=== PATIENT | male | born 1965 ===

== ENCOUNTER 2017-03-13 10:18 | Emergency (ER) | payer OTHER ==
[2017-03-13 10:29] VITALS: BP 144/75; PULSE 81; RESP 18; TEMP 98.4; O2SAT 99
[2017-03-13 10:30] VITALS: BMI 25.8
--- NOTE | 2017-03-13 11:02 | ED PDOC ---
HPI: General Adult Time Seen by Provider: 03/13/17 10:45 Past Medical History Vital Signs: Last Vital Signs Temp 98.4 F 03/13/17 10:29 Pulse 81 03/13/17 10:29 Resp 18 03/13/17 10:29 BP 144/75 03/13/17 10:29 Pulse Ox 99 03/13/17 10:29 - Medical History PMH: HIV, HTN, Pancreatitis Denies: Chronic Kidney Disease - Surgical History Surgical History: Cholecystectomy - Family History Family History: States: Unknown Family Hx - Home Medications Home Medications: Ambulatory Orders Medication Instructions Recorded Enalapril Maleate [Vasotec] 10 mg PO DAILY #0 tab 04/07/16 Elviteg/Gavi/Emtric/Tenofo Ala 1 tab PO DAILY 12/09/16 [Genvoya Tablet] hydroCHLOROthiazide [Hydrodiuril] 25 mg PO DAILY #15 tab 12/09/16 Amoxicillin/Clavulanate [Augmentin 1 tab PO BID #20 tab 03/13/17 875 MG-125 MG] - Allergies Allergies/Adverse Reactions: Allergies Allergy/AdvReac Type Severity Reaction Status Date / Time No Known Allergies Allergy Verified 01/03/16 12:16 - ECG O2 Sat by Pulse Oximetry: 99 Disposition - Clinical Impression Clinical Impression: Gum lesion - Patient ED Disposition Is Patient to be Admitted: No - Disposition Disposition: Routine/Home Disposition Time: 11:02 Condition: GOOD Prescriptions: Amoxicillin/Clavulanate [Augmentin 875 MG-125 MG] 1 tab PO BID #20 tab Instructions: Cavity Preventive (For the teeth or gums)
== END 2017-03-13 11:10 | disposition home or self-care (01) ==
LOC: H.ER 10:18
DX: K13.79 Other lesions of oral mucosa (principal)

== ENCOUNTER 2017-06-02 11:48 | Emergency (ER) | payer OTHER ==
[2017-06-02 11:48] VITALS: BMI 25.8
[2017-06-02 12:02] VITALS: BP 133/80; PULSE 87; RESP 16; TEMP 98; O2SAT 98
[2017-06-02] MEDS ORDERED: Sodium Chloride 0.9% 1,000 ML IV STA (12:47)
--- NOTE | 2017-06-02 13:07 | ED PDOC ---
HPI: Abdomen Time Seen by Provider: 06/02/17 12:06 Chief Complaint (Nursing): Abdominal Pain Chief Complaint (Provider): Abdominal pain History Per: Patient History/Exam Limitations: no limitations Onset/Duration Of Symptoms: Days (1) Outside of [place] travel?: No Location Of Pain/Discomfort: Epigastric Additional Complaint(s): Pt reports "burning" upper abdominal pain X 1 day, associated with nausea and diarrhea. Denies fever, vomiting, urinary symptoms. Had similar pain 1 month ago that resolved after taking Pepcid. Pt with HIV with "high" CD4 count. Past Medical History Reviewed: Nursing Documentation, Vital Signs Vital Signs: Last Vital Signs Temp 98 F 06/02/17 11:59 Pulse 87 06/02/17 11:59 Resp 16 06/02/17 11:59 BP 133/80 06/02/17 11:59 Pulse Ox 98 06/02/17 13:58 - Medical History PMH: HIV, HTN, Pancreatitis Denies: Chronic Kidney Disease - Surgical History Surgical History: Cholecystectomy - Family History Family History: States: Unknown Family Hx - Living Arrangements Living Arrangements: Alone - Social History Current smoker - smoking cessation education provided: No Alcohol: None - Home Medications Home Medications: Ambulatory Orders Medication Instructions Recorded Enalapril Maleate [Vasotec] 10 mg PO DAILY #0 tab 04/07/16 Elviteg/Gavi/Emtric/Tenofo Ala 1 tab PO DAILY 12/09/16 [Genvoya Tablet] hydroCHLOROthiazide [Hydrodiuril] 25 mg PO DAILY #15 tab 12/09/16 Amoxicillin/Clavulanate [Augmentin 1 tab PO BID #20 tab 03/13/17 875 MG-125 MG] Famotidine [Pepcid] 20 mg PO BID #20 tab 06/02/17 Ondansetron ODT [Zofran ODT] 4 mg PO Q8H PRN #20 odt 06/02/17 - Allergies Allergies/Adverse Reactions: Allergies Allergy/AdvReac Type Severity Reaction Status Date / Time No Known Allergies Allergy Verified 01/03/16 12:16 Review of Systems Constitutional: Negative for: Fever, Chills Cardiovascular: Negative for: Chest Pain, Palpitations Respiratory: Negative for: Cough, Shortness of Breath Gastrointestinal: Positive for: Nausea, Abdominal Pain. Negative for: Vomiting , Diarrhea Genitourinary Male: Negative for: Dysuria, Hematuria Musculoskeletal: Negative for: Back Pain Skin: Negative for: Rash, Lesions Neurological: Negative for: Headache Physical Exam - Reviewed Nursing Documentation Reviewed: Yes Vital Signs Reviewed: Yes - Physical Exam Appears: Positive for: Well, No Acute Distress Skin: Positive for: Normal Color, Warm, Dry Eye Exam: Positive for: Normal appearance, EOMI, PERRL Cardiovascular/Chest: Positive for: Regular Rate, Rhythm Respiratory: Positive for: Normal Breath Sounds Gastrointestinal/Abdominal: Positive for: Bowel Sounds, Soft, Tenderness ( Epigastric/RUQ). Negative for: Distended, Guarding, Rebound Back: Positive for: Normal Inspection. Negative for: L CVA Tenderness, R CVA Tenderness Extremity: Positive for: Normal ROM Neurologic/Psych: Positive for: Alert, Oriented - Laboratory Results Result Diagrams: 06/02/17 12:48 06/02/17 13:00 - ECG Interpretation Of ECG: NSR @ 81, no ST-T changes. O2 Sat by Pulse Oximetry: 98 - CT Scan/US CT abd/pelvis Other Rad Studies (CT/US): Radiology Report Reviewed (Previously noted cyst suspected pancreatitis changes which were predominately located about the pancreatic head on prior CT scan improved. Persistent dilatation of the common bile duct as well as mild central intrahepatic biliary ductal dilatation likely related to post cholecystectomy sequela. No evidence choledocholithiasis. Moderate amount of stool seen throughout the small bowel and proximal large bowel suggesting underlying the nonspecific diarrheal illness. Clinical correlation recommended. ) Medical Decision Making Medical Decision Makin yo with epigastric/RUQ pain, nausea and diarrhea. - labs - IVF - Zofran - Morphine Disposition - Clinical Impression Clinical Impression: Abdominal pain in male - Disposition Referrals: Wilbur Barrientos MD [Family Provider] - Disposition: Routine/Home Disposition Time: 16:29 Condition: STABLE Prescriptions: Famotidine [Pepcid] 20 mg PO BID #20 tab Ondansetron ODT [Zofran ODT] 4 mg PO Q8H PRN #20 odt PRN Reason: Nausea/Vomiting Instructions: Acute Abdominal Pain (ED) Forms: [employer] (Icelandic)
[2017-06-02 13:13] LABS: BASO % 0.2 % (0.0-2.0); EOS # 0.1 K/uL (0.0-0.7); EOS % 1.4 % (0.0-4.0); LYMPH # 0.8 K/uL (1.0-4.3); LYMPH % 8.1 % (20.0-40.0); MEAN CELL VOLUME 96.5 fl (80.0-94.0); MEAN CORPUSCULAR HEMOGLOBIN 34.1 pg (27.0-31.0); MEAN CORPUSCULAR HGB CONC 35.3 g/dL (33.0-37.0); MEAN PLATELET VOLUME 6.8 fl (7.2-11.7); MONO # 0.4 K/uL (0.0-0.8); MONO % 4.1 % (0.0-10.0); NEUT # 8.9 K/uL (1.8-7.0); NEUT % 86.2 % (50.0-75.0); PLATELET COUNT 259 K/uL (130-400); RBC 4.69 Mil/uL (4.40-5.90); WHITE BLOOD COUNT 10.3 K/uL (4.8-10.8)
[2017-06-02 13:37] LABS: ALB/GLOB RATIO 1.4 (1.0-2.1); ALBUMIN 4.4 g/dL (3.5-5.0); ALT/SGPT 49 U/L (21-72); AST/SGOT 43 U/L (17-59); BLOOD UREA NITROGEN 18 mg/dl (9-20); CALCIUM 9.3 mg/dL (8.4-10.2); GFR AFRICAN-AMERICAN > 60; GFR NON-AFRICAN AMERICAN 58; LIPASE 108 U/L (23-300)
[2017-06-02 14:03] LABS: BASOPHIL 1 % (0-2); EOSINOPHIL 1 % (0-7); LYMPHOCYTE 12 % (20-50); MONOCYTE 4 % (0-10); NEUTROPHIL 82 % (42-75); PLATELET ESTIMATE NORMAL (NORMAL); TOTAL CELLS COUNTED 100
--- NOTE | 2017-06-02 15:50 | CARD ---
APPROVED REPORT EKG Measurement Heart [id number] ID [id number] <Conclusion> Normal sinus rhythm Normal ECG
--- NOTE | 2017-06-02 16:25 | CT ---
PROCEDURE: CT Abdomen and Pelvis with Oral contrast. CT abdomen and pelvis dated 06/02/2017 HISTORY: Upper abdominal pain, nausea, diarrhea COMPARISON: Comparison made with CT scan abdomen and pelvis 04/04/2016 TECHNIQUE: Contiguous axial images of the abdomen and pelvis performed without oral or intravenous contrast. Additional 2 dimensional sagittal and coronal reformats provided. Radiation dose: Total exam DLP = 777.81 mGy-cm. This CT exam was performed using one or more of the following dose reduction techniques: Automated exposure control, adjustment of the mA and/or kV according to patient size, and/or use of iterative reconstruction technique. FINDINGS: LOWER THORAX: Lung bases clear without infiltrate effusion or pneumothorax. Mild bibasilar atelectasis and/or scarring. No effusion or basilar pneumothorax. There is a small hiatal hernia with slight wall thickening of the distal esophagus that is likely due to protrusion of gastric mucosa. Possibility of esophagitis not excluded. Heart size is within range of normal. No significant pericardial effusion. LIVER: Mild central intrahepatic biliary ductal dilatation again noted though less well seen on this study compared to prior CT scan lack of circulating intravenous contrast material. No obvious hepatic mass or collection. GALLBLADDER AND BILE DUCTS: Re- demonstrated are changes of cholecystectomy with dilatation of common bile duct. No definitive evidence of choledocholithiasis. PANCREAS: The pancreatic head appears less edematous with diminished infiltration changes in the peripancreatic fat surrounding the pancreatic head on prior exam which was felt to represent mild pancreatitis on that study however clinic correlation recommended. SPLEEN: Spleen not appears grossly unremarkable without mass collection or calcification seen on this limited noncontrast study. Small splenule adjacent to the anterior superior margin of the main body of the spleen unchanged. . ADRENALS: There are no adrenal lesions. KIDNEYS AND URETERS: Kidneys exhibit relatively symmetric size. No evidence of nephrolithiasis or hydronephrosis. BLADDER: Urinary bladder is incompletely distended which may account for slight thick-walled appearance. Muscular hypertrophy presumably contributes; rule out mild chronic bladder outlet obstruction. Possibility of a cystitis not excluded. REPRODUCTIVE: Prostate gland is enlarged measuring approximately 5.4 cm in transverse dimension. Prostatic calcifications again noted. APPENDIX: What is felt to represent the appendix best seen on axial image number [id number]. No periappendiceal inflammatory changes. BOWEL: Evaluation of the bowel is limited due to the lack of oral contrast material. The stomach contains food debris liquid and air though is incompletely distended which presumably accounts slight thick-walled appearance. There are multiple nondistended fluid-filled loops of small bowel however no evidence of abnormal wall thickening. . There is a moderate amount of fluid within the cecum and proximal ascending colon. Findings suggest underlying nonspecific diarrheal illness. PERITONEUM: No gross free intraperitoneal air or fluid. . There appears to be at mild diastases of the upper abdominus rectus musculature LYMPH NODES: Few small nonspecific retroperitoneal lymph nodes are present. VASCULATURE: No evidence of abdominal aortic or iliac artery aneurysm. BONES: Mild multilevel degenerative spondylosis of the lower thoracic and lumbar spine. There is straightening of the normal lumbar lordosis. Vertebral bodies otherwise exhibit normal alignment. Facets normally aligned. OTHER FINDINGS: None. IMPRESSION: Previously noted cyst suspected pancreatitis changes which were predominately located about the pancreatic head on prior CT scan improved. . Persistent dilatation of the common bile duct as well as mild central intrahepatic biliary ductal dilatation likely related to post cholecystectomy sequela. No evidence choledocholithiasis. Moderate amount of stool seen throughout the small bowel and proximal large bowel suggesting underlying the nonspecific diarrheal illness. Clinical correlation recommended. Findings discussed with Dr. Hua at approximately 4:20 p.m. with written down and read back verification
== END 2017-06-02 17:06 | disposition home or self-care (01) ==
LOC: H.ER 11:48
DX: R10.9 Unspecified abdominal pain (principal); I10 Essential (primary) hypertension

== ENCOUNTER 2017-11-03 09:58 | Day surgery (SDC) | payer SELFPAY ==
[2017-11-03] MEDS ORDERED: Lactated Ringer's 1,000 ML IV ONE (13:30)
[2017-11-03] MEDS ORDERED: Propofol 10 mg/ml Inj (20 ML) ONE (13:35)
[2017-11-03] MEDS ORDERED: Lidocaine 2% MPF (5 ml) Inj ONE (13:35)
--- NOTE | 2017-11-03 13:35 | CP.SDSHP ---
Same Day Surgery H & P - History Proposed Procedure: colonoscopy Pre-Op Diagnosis: colon cancer screening - Previous Medical/Surgical History Cardiac: Hypertension - Allergies Allergies: Allergies No Known Allergies Allergy (Verified 11/03/17 13:31) - Physical Exam General Appearance: alert oriented x3 Mental Status: Alert & Oriented x3 Neuro: WNL Heart: WNL Lungs: WNL GI: WNL - Impression Impression: colon cancer screening Pt. Evaluated Today:Candidate for Anesthesia & Procedure: Yes - Date & Time Date: 11/03/16 Time: 13:30 Short Stay Discharge - Short Stay Discharge Admitting Diagnosis/Reason for Visit: SCREENING Disposition: HOME/ ROUTINE Referrals: Wilbur Barrientos MD [Primary Care Provider] -
[2017-11-03 14:17] VITALS: BP 109/59; PULSE 84; RESP 17; TEMP 7.1; O2SAT 100
== END 2017-11-03 14:31 | disposition home or self-care (01) ==
LOC: H.ENDO 09:58
PROVIDERS: ATTEND Internal Medicine Gastroenterology
DX: Z12.11 Encounter for screening for malignant neoplasm of colon (principal); Z21 Asymptomatic human immunodeficiency virus [HIV] infection status; I10 Essential (primary) hypertension; K64.8 Other hemorrhoids
CPT/HCPCS: 45378; J2704; J7120

== ENCOUNTER 2018-02-07 08:15 | Emergency (ER) | payer MEDICAID, SELFPAY ==
[2018-02-07 08:16] VITALS: BMI 25.8
[2018-02-07 08:20] VITALS: BP 117/67; O2SAT 99
[2018-02-07] MEDS ORDERED: Sodium Chloride 0.9% 1,000 ML IV STA (08:33)
--- NOTE | 2018-02-07 08:43 | ED PDOC ---
HPI: General Adult Time Seen by Provider: 02/07/18 08:29 Chief Complaint (Nursing): Flu-like Symptoms Chief Complaint (Provider): fever, body aches, and headache History Per: Patient History/Exam Limitations: no limitations Onset/Duration Of Symptoms: Days (x2) Current Symptoms Are (Timing): Still Present Additional Complaint(s): 52 year old male with a past medical history of HIV presents to the ED complaining of fever, body aches, and headache onset two days ago. Reports he was exposed to sick contacts because his friend was sick a few days ago. Patient states his CD 4 count is over 400. Also states his last dose of Tylenol was last night. Denies cough, vomiting, diarrhea, or vision changes. PMD: Ernie Andrade Past Medical History Reviewed: Historical Data, Nursing Documentation, Vital Signs Vital Signs: Last Vital Signs Temp 99.3 F 02/07/18 10:35 Pulse 83 02/07/18 10:35 Resp 16 02/07/18 10:35 BP 117/67 02/07/18 08:19 Pulse Ox 99 02/07/18 10:35 - Medical History PMH: HIV, HTN, Pancreatitis Denies: Chronic Kidney Disease - Surgical History Surgical History: Cholecystectomy - Family History Family History: States: Unknown Family Hx - Home Medications Home Medications: Ambulatory Orders Medication Instructions Recorded Enalapril Maleate [Vasotec] 10 mg PO DAILY #0 tab 04/07/16 Elviteg/Cob/Emtri/Tenof Alafen 1 tab PO DAILY 12/09/16 [Genvoya Tablet] Ibuprofen [Motrin] 600 mg PO Q6H PRN #20 tab 02/07/18 Oseltamivir Phosphate [Tamiflu] 75 mg PO BID #9 capsule 02/07/18 - Allergies Allergies/Adverse Reactions: Allergies Allergy/AdvReac Type Severity Reaction Status Date / Time No Known Allergies Allergy Verified 11/03/17 13:31 Review of Systems ROS Statement: Except As Marked, All Systems Reviewed And Found Negative Constitutional: Positive for: Fever, Other (bpdy aches) Eyes: Negative for: Vision Change Respiratory: Negative for: Cough Gastrointestinal: Negative for: Vomiting, Diarrhea Neurological: Positive for: Headache Physical Exam - Reviewed Nursing Documentation Reviewed: Yes Vital Signs Reviewed: Yes - Physical Exam Appears: Positive for: Well, Non-toxic, No Acute Distress Head Exam: Positive for: ATRAUMATIC, NORMAL INSPECTION, NORMOCEPHALIC Skin: Positive for: Normal Color, Warm, Dry Eye Exam: Positive for: EOMI, Normal appearance, PERRL ENT: Positive for: Normal ENT Inspection, Pharynx Is (clear). Negative for: Tonsillar Exudate Neck: Positive for: Normal, Painless ROM, Supple. Negative for: Decreased ROM Cardiovascular/Chest: Positive for: Regular Rate, Rhythm. Negative for: Murmur Respiratory: Positive for: Normal Breath Sounds. Negative for: Decreased Breath Sounds, Accessory Muscle Use, Wheezing, Respiratory Distress Gastrointestinal/Abdominal: Positive for: Normal Exam, Bowel Sounds, Soft. Negative for: Tenderness Back: Positive for: Normal Inspection. Negative for: L CVA Tenderness, R CVA Tenderness Extremity: Positive for: Normal ROM. Negative for: Tenderness, Pedal Edema, Deformity Neurologic/Psych: Positive for: Alert, Oriented (x3). Negative for: Motor/ Sensory Deficits - Laboratory Results Result Diagrams: 02/07/18 08:46 02/07/18 08:46 - ECG O2 Sat by Pulse Oximetry: 99 (RA) Pulse Ox Interpretation: Normal Medical Decision Making Medical Decision Making: Time: 831 Initial Impression: Fever, Viral Syndrome, Flu Initial Plan: --CMP --ED Urine dipstick --CBC w/ differential --PTT --Prothrombin Time --Motrin 600mg --Normal Saline 1000 mls/hr --Tylenol 650mg --Influenza A B --Urinalysis --Reevaluation Scribe Attestation: Documented by Michelet Lauren, acting as a scribe for Alma Hua MD Provider Scribe Attestation: All medical record entries made by the Scribe were at my direction and personally dictated by me. I have reviewed the chart and agree that the record accurately reflects my personal performance of the history, physical exam, medical decision making, and the department course for this patient. I have also personally directed, reviewed, and agree with the discharge instructions and disposition. Disposition - Clinical Impression Clinical Impression: Influenza-like symptoms - Disposition Referrals: Wilbur Andrade MD [Staff Provider] - Disposition: Routine/Home Disposition Time: 10:44 Condition: STABLE Prescriptions: Ibuprofen [Motrin] 600 mg PO Q6H PRN #20 tab PRN Reason: Pain, Moderate (4-7) Oseltamivir Phosphate [Tamiflu] 75 mg PO BID #9 capsule Instructions: Flu Forms: [facility] (Tristanian) Print Language: PALAUAN
[2018-02-07 08:53] LABS: BASO % 0.5 % (0.0-2.0); EOS % 0.1 % (0.0-4.0); HEMOGLOBIN 14.2 g/dL (12.0-18.0); LYMPH # 0.6 K/uL (1.0-4.3); LYMPH % 7.7 % (20.0-40.0); MEAN CELL VOLUME 98.5 fl (80.0-94.0); MEAN CORPUSCULAR HEMOGLOBIN 34.3 pg (27.0-31.0); MEAN CORPUSCULAR HGB CONC 34.8 g/dL (33.0-37.0); MEAN PLATELET VOLUME 6.8 fl (7.2-11.7); MONO # 0.4 K/uL (0.0-0.8); MONO % 5.5 % (0.0-10.0); NEUT # 6.7 K/uL (1.8-7.0); NEUT % 86.2 % (50.0-75.0); PLATELET COUNT 220 K/uL (130-400); RBC 4.15 Mil/uL (4.40-5.90); RED CELL DISTRIBUTION WIDTH 13.1 % (11.5-14.5); WHITE BLOOD COUNT 7.8 K/uL (4.8-10.8)
[2018-02-07 09:03] LABS: ALB/GLOB RATIO 1.2 (1.0-2.1); ALBUMIN 4.1 g/dL (3.5-5.0); ALT/SGPT 67 U/L (21-72); AST/SGOT 58 U/L (17-59); BLOOD UREA NITROGEN 15 mg/dl (9-20); CALCIUM 9.1 mg/dL (8.4-10.2); GFR AFRICAN-AMERICAN > 60; GFR NON-AFRICAN AMERICAN 53
[2018-02-07 09:42] LABS: SQUAMOUS EPITHIAL < 1 /hpf (0-5); URINE AMORPHOUS SEDIMENT RARE /ul (<OCC); URINE BILIRUBIN NEGATIVE (NEGATIVE); URINE BLOOD NEGATIVE (NEGATIVE); URINE CLARITY SLIGHTY-CLOUDY (Clear); URINE COLOR YELLOW (YELLOW); URINE GLUCOSE (UA) NEG (Normal); URINE LEUKOCYTE ESTERASE TRACE Leu/uL (Negative); URINE PROTEIN NEGATIVE (NEGATIVE); URINE UROBILINOGEN 0.2-1.0 mg/dL (0.2-1.0)
[2018-02-07 09:56] LABS: ANISOCYTOSIS SLIGHT; LYMPHOCYTE 6 % (20-50); MONOCYTE 5 % (0-10); NEUTROPHIL 89 % (42-75); OVALOCYTES SLIGHT; PLATELET ESTIMATE NORMAL (NORMAL); TOTAL CELLS COUNTED 100
[2018-02-07 09:57] LABS: LARGE PLATELETS PRESENT; TEARDROP CELLS SLIGHT
[2018-02-07 10:35] VITALS: PULSE 83; RESP 16; TEMP 99.3
== END 2018-02-07 10:52 | disposition home or self-care (01) ==
LOC: H.ER 08:15
DX: J11.1 Influenza due to unidentified influenza virus with other respiratory manifestations (principal); I10 Essential (primary) hypertension
CPT/HCPCS: 80053; 81003; 85025; 87804; 96360; 99283; J7040

== ENCOUNTER 2018-05-16 07:23 | Emergency (ER) | payer SELFPAY ==
[2018-05-16 07:23] VITALS: BMI 25.8
[2018-05-16 07:36] VITALS: BP 119/69; PULSE 66; RESP 16; TEMP 98.3; O2SAT 98
[2018-05-16] MEDS ORDERED: Sodium Chloride 0.9% 1,000 ML IV STA (07:53)
--- NOTE | 2018-05-16 07:55 | ED PDOC ---
HPI: Abdomen Time Seen by Provider: 05/16/18 07:27 Chief Complaint (Nursing): GI Problem Chief Complaint (Provider): GI Problem History Per: Patient History/Exam Limitations: no limitations Onset/Duration Of Symptoms: Days (x4) Outside of [place] travel?: No Current Symptoms Are (Timing): Still Present Location Of Pain/Discomfort: Epigastric Quality Of Discomfort: Cramping Associated Symptoms: Diarrhea Additional Complaint(s): 52 y/o male with a PMHx of HTN and HIV presents to the ED complaining of cramping abdominal pain associated with diarrhea, onset 4 days ago. Patient reports of a similar episode last year but is unsure which medications he took to relieve symptoms. Patient states pain comes and goes every day for the past 4 days starting at around 4 am. Denies nausea, vomiting, chest pain, shortness of breath, leg pain, dizziness/lightheadedness, cough, congestion, travel, sick contacts, dysuria, hematuria and hematochezia. PMD: Wilbur Barrientos Past Medical History Reviewed: Historical Data, Nursing Documentation, Vital Signs Vital Signs: Last Vital Signs Temp 98.3 F 05/16/18 07:35 Pulse 66 05/16/18 07:35 Resp 16 05/16/18 07:35 BP 119/69 05/16/18 07:35 Pulse Ox 98 05/16/18 08:04 - Medical History PMH: HIV, HTN, Pancreatitis Denies: Chronic Kidney Disease - Surgical History Surgical History: Cholecystectomy - Family History Family History: States: Unknown Family Hx - Home Medications Home Medications: Ambulatory Orders Medication Instructions Recorded Enalapril Maleate [Vasotec] 10 mg PO DAILY #0 tab 04/07/16 Elviteg/Cob/Emtri/Tenof Alafen 1 tab PO DAILY 12/09/16 [Genvoya Tablet] Ibuprofen [Motrin] 600 mg PO Q6H PRN #20 tab 02/07/18 Oseltamivir Phosphate [Tamiflu] 75 mg PO BID #9 capsule 02/07/18 Dicyclomine [Dicyclomine HCl] 10 mg PO DAILY PRN 5 Days cap 05/16/18 - Allergies Allergies/Adverse Reactions: Allergies Allergy/AdvReac Type Severity Reaction Status Date / Time No Known Allergies Allergy Verified 05/16/18 07:41 Review of Systems ROS Statement: Except As Marked, All Systems Reviewed And Found Negative ENT: Negative for: Nose Congestion Cardiovascular: Negative for: Chest Pain Respiratory: Negative for: Cough, Shortness of Breath Gastrointestinal: Positive for: Abdominal Pain, Diarrhea. Negative for: Nausea , Vomiting, Hematochezia Genitourinary Male: Negative for: Dysuria, Hematuria Musculoskeletal: Negative for: Leg Pain Neurological: Negative for: Dizziness Physical Exam - Reviewed Nursing Documentation Reviewed: Yes Vital Signs Reviewed: Yes - Physical Exam Appears: Positive for: No Acute Distress Head Exam: Positive for: ATRAUMATIC, NORMOCEPHALIC Skin: Positive for: Normal Color, Warm, Dry Eye Exam: Positive for: Normal appearance, EOMI, PERRL Neck: Positive for: Normal, Painless ROM Cardiovascular/Chest: Positive for: Regular Rate, Rhythm. Negative for: Murmur Respiratory: Positive for: Normal Breath Sounds. Negative for: Respiratory Distress Gastrointestinal/Abdominal: Positive for: Normal Exam, Tenderness (Mild epigastric tenderness) Back: Positive for: Normal Inspection Extremity: Positive for: Normal ROM. Negative for: Pedal Edema, Deformity Neurologic/Psych: Positive for: Alert, Oriented. Negative for: Motor/Sensory Deficits - Laboratory Results Result Diagrams: 05/16/18 08:00 05/16/18 08:00 Interpretation Of Abn Labs: no acute - ECG O2 Sat by Pulse Oximetry: 98 (RA) Pulse Ox Interpretation: Normal - Progress ED Course And Treament: 933: Stable. AAOx3. Pain free. Tolerated PO. FU with pcp. Medical Decision Making Medical Decision Making: Time: 752 Plan: -- CMP -- Lipase -- CBC with differentials -- Bentyl -- Sodium Chloride IV 1000 mls/hr Scribe Attestation: Documented by Zuhair Perkins acting as a scribe for Dr. Daniel Beltrán MD. Provider Scribe Attestation: All medical record entries made by the Scribe were at my direction and personally dictated by me. I have reviewed the chart and agree that the record accurately reflects my personal performance of the history, physical exam, medical decision making, and the department course for this patient. I have also personally directed, reviewed, and agree with the discharge instructions and disposition. Disposition - Clinical Impression Clinical Impression: Diarrhea, Abdominal pain - Patient ED Disposition Is Patient to be Admitted: No Counseled Patient/Family Regarding: Studies Performed, Diagnosis, Need For Followup, Rx Given - Disposition Referrals: [facility] [Outside] - 05/17/18 Disposition: Routine/Home Disposition Time: 09:34 Condition: STABLE Additional Instructions: Return if not better in 3 days. Prescriptions: Dicyclomine [Dicyclomine HCl] 10 mg PO DAILY PRN 5 Days cap PRN Reason: Diarrhea Instructions: Diarrhea in Adolescents and Adults, Stomach Ache and Stomach Upset Forms: [facility] (Khmer), [facility] ED School/Work Excuse
[2018-05-16 08:27] LABS: BASO % 0.7 % (0.0-2.0); EOS # 0.1 K/uL (0.0-0.7); EOS % 1.2 % (0.0-4.0); HEMOGLOBIN 14.6 g/dL (12.0-18.0); LYMPH # 1.4 K/uL (1.0-4.3); LYMPH % 29.5 % (20.0-40.0); MEAN CELL VOLUME 96.8 fl (80.0-94.0); MEAN CORPUSCULAR HEMOGLOBIN 33.5 pg (27.0-31.0); MEAN CORPUSCULAR HGB CONC 34.6 g/dL (33.0-37.0); MEAN PLATELET VOLUME 6.9 fl (7.2-11.7); MONO # 0.7 K/uL (0.0-0.8); MONO % 13.8 % (0.0-10.0); NEUT # 2.6 K/uL (1.8-7.0); NEUT % 54.8 % (50.0-75.0); RBC 4.34 Mil/uL (4.40-5.90); RED CELL DISTRIBUTION WIDTH 13.2 % (11.5-14.5); WHITE BLOOD COUNT 4.7 K/uL (4.8-10.8)
[2018-05-16 08:43] LABS: ALB/GLOB RATIO 1.2 (1.0-2.1); ALBUMIN 4.3 g/dL (3.5-5.0); ALT/SGPT 27 U/L (21-72); AST/SGOT 32 U/L (17-59); BLOOD UREA NITROGEN 16 mg/dl (9-20); CALCIUM 9.4 mg/dL (8.4-10.2); GFR NON-AFRICAN AMERICAN > 60; LIPASE 82 U/L (23-300)
== END 2018-05-16 10:02 | disposition home or self-care (01) ==
LOC: H.ER 07:23
DX: R10.9 Unspecified abdominal pain (principal); R19.7 Diarrhea, unspecified; I10 Essential (primary) hypertension; K85.90 Acute pancreatitis without necrosis or infection, unspecified
CPT/HCPCS: 80053; 83690; 85025; 99284; J7030

== ENCOUNTER 2018-10-17 10:01 | Emergency (ER) | payer SELFPAY ==
[2018-10-17 10:01] VITALS: BMI 25.8
[2018-10-17 10:17] VITALS: O2SAT 99
--- NOTE | 2018-10-17 11:17 | ED PDOC ---
HPI: General Adult Time Seen by Provider: 10/17/18 10:21 Chief Complaint (Nursing): ENT Problem History Per: Patient Additional Complaint(s): Pt. states 1 week ago he removed a fishbone from the L side of his throat by himself at home. States since then he's had L sided sore throat radiating up to his L ear. Denies fever, throat swelling, rash, hearing changes. Past Medical History Vital Signs: Last Vital Signs Temp 98.3 F 10/17/18 10:16 Pulse 68 10/17/18 10:16 Resp 16 10/17/18 10:16 BP 146/72 10/17/18 10:16 Pulse Ox 99 10/17/18 10:16 - Medical History PMH: HIV (compliant with meds), HTN, Pancreatitis Denies: Chronic Kidney Disease - Surgical History Surgical History: Cholecystectomy - Family History Family History: States: No Known Family Hx - Home Medications Home Medications: Ambulatory Orders Medication Instructions Recorded RX: Enalapril Maleate [Vasotec] 10 mg PO DAILY #0 tab 04/07/16 Elviteg/Cob/Emtri/Tenof Alafen 1 tab PO DAILY 12/09/16 [Genvoya Tablet] Ibuprofen [Motrin] 600 mg PO Q6H PRN #20 tab 02/07/18 Oseltamivir Phosphate [Tamiflu] 75 mg PO BID #9 capsule 02/07/18 Dicyclomine [Dicyclomine HCl] 10 mg PO DAILY PRN 5 Days cap 05/16/18 RX: Naproxen [Naprosyn] 500 mg PO BID PRN #10 tab 10/17/18 - Allergies Allergies/Adverse Reactions: Allergies Allergy/AdvReac Type Severity Reaction Status Date / Time No Known Allergies Allergy Verified 10/17/18 10:34 Review of Systems ROS Statement: Except As Marked, All Systems Reviewed And Found Negative ENT: Positive for: Throat Pain Physical Exam - Physical Exam Appears: Positive for: Well, Non-toxic, No Acute Distress Skin: Positive for: Normal Color, Warm. Negative for: Rash Eye Exam: Positive for: Normal appearance ENT: Positive for: Normal ENT Inspection, TM Is/Are (non-erythematous, non- bulging b/l), Other (able to swallow saliva; no FB noted). Negative for: Pharyngeal Erythema, Tonsillar Exudate, Tonsillar Swelling Neck: Positive for: Normal, Painless ROM Respiratory: Positive for: Normal Breath Sounds. Negative for: Stridor Neurologic/Psych: Positive for: Alert, Oriented (x3) - Laboratory Results Result Diagrams: 10/17/18 11:37 10/17/18 11:37 - ECG O2 Sat by Pulse Oximetry: 99 - Progress ED Course And Treament: Labs, soft tissue neck w/ IV contrast ordered. Pt. kept NPO. CT neck soft tissue: There are multiple tiny calcified tonsilliths seen throughout both palatine tonsils. No evidence of peritonsillar abscess formation.. Nonspecific small lucent changes seen within the C4, C5 and probably the C2 vertebral body segments of uncertain etiology. Clinical correlation to exclude an infiltrative marrow disease process is recommended. Results d/w patient along with necessary f/u for c-spine findings. Verbalized understanding of necessary f/u. Disposition - Clinical Impression Clinical Impression: Odynophagia - Patient ED Disposition Is Patient to be Admitted: No - Disposition Referrals: Say Simeon MD [Staff Provider] - Disposition: Routine/Home Disposition Time: 15:14 Condition: STABLE Additional Instructions: FOLLOW UP WITH DR. SIMEON FOR FURTHER EVALUATION RETURN TO ED IMMEDIATELY IF SYMPTOMS WORSEN NEEL TEJADA, thank you for letting us take care of you today. Your provider was Oz Contreras MD and you were treated for THROAT PAIN. The emergency medical care you received today was directed at your acute symptoms. If you were prescribed any medication, please fill it and take as directed. It may take several days for your symptoms to resolve. Return to the Emergency Department if your symptoms worsen, do not improve, or if you have any other problems. Please contact your doctor or call one of the physicians/clinics you have been referred to that are listed on the Patient Visit Information form that is included in your discharge packet. Bring any paperwork you were given at discharge with you along with any medications you are taking to your follow up visit. Our treatment cannot replace ongoing medical care by a primary care p alexia outside of the emergency department. Thank you for allowing the [facility] team to be part of your care today. If you had an X-Ray or CT scan: A Radiologist will review the ED reading if any change in treatment is needed we will contact you. If you had a blood, urine, or wound culture: It will take several days for the results, if any change in treatment is needed we will contact you. If you had an STI test: It will take 48 hours for the results. Please call after 1 week if you have not heard back. Prescriptions: RX: Naproxen [Naprosyn] 500 mg PO BID PRN #10 tab PRN Reason: Pain Instructions: Sore Throat, Adult (DC) Forms: [employer] ([place])
[2018-10-17 11:53] LABS: ALB/GLOB RATIO 1.3 (1.0-2.1); ALBUMIN 4.5 g/dL (3.5-5.0); ALT/SGPT 37 U/L (21-72); AST/SGOT 30 U/L (17-59); BLOOD UREA NITROGEN 21 mg/dl (9-20); CALCIUM 9.5 mg/dL (8.4-10.2); GFR NON-AFRICAN AMERICAN 58
[2018-10-17 11:54] LABS: BASO % 0.5 % (0.0-2.0); EOS # 0.2 K/uL (0.0-0.7); HEMOGLOBIN 14.7 g/dL (12.0-18.0); LYMPH # 1.9 K/uL (1.0-4.3); MEAN CELL VOLUME 99.1 fl (80.0-94.0); MEAN CORPUSCULAR HEMOGLOBIN 33.4 pg (27.0-31.0); MEAN CORPUSCULAR HGB CONC 33.7 g/dL (33.0-37.0); MEAN PLATELET VOLUME 7.1 fl (7.2-11.7); MONO # 0.7 K/uL (0.0-0.8); MONO % 11.2 % (0.0-10.0); NEUT # 3.3 K/uL (1.8-7.0); NEUT % 54.3 % (50.0-75.0); NRBC % 0.1 % (0.0-0.0); RBC 4.39 Mil/uL (4.40-5.90); RED CELL DISTRIBUTION WIDTH 13.3 % (11.5-14.5)
[2018-10-17] MEDS ORDERED: Iohexol 300 100 ML IJ ONE (12:56)
[2018-10-17] MEDS ORDERED: Sodium Chloride 0.9% 50 ML IV ONE (12:56)
--- NOTE | 2018-10-17 14:58 | CT ---
Date of service: 10/17/2018 PROCEDURE: CT NECK WITH CONTRAST HISTORY: Left-sided sore throat COMPARISON: None available. TECHNIQUE: CT of the neck with intravenous contrast. Coronal and sagittal reformats generated. Intravenous contrast dose: Radiation dose: Total exam DLP = 326.26 mGy-cm. This CT exam was performed using one or more of the following dose reduction techniques: Automated exposure control, adjustment of the mA and/or kV according to patient size, and/or use of iterative reconstruction technique. FINDINGS: NASOPHARYNX: Unremarkable. SUPRAHYOID NECK: There are multiple tiny calcified tonsilliths seen throughout both palatine tonsils. No evidence of peritonsillar abscess formation. The parapharyngeal space and retropharyngeal space unremarkable.. The vallecular is symmetric. Free margin of the epiglottis unremarkable. The aryepiglottic folds and pyriform sinuses are not well delineated on this study; pyriform sinuses are not aerated. INFRAHYOID NECK: Unremarkable larynx, hypopharynx, and supraglottic space. Vocal cords intact and appear symmetric. MASS: No large cervical masses or collections identified on this CT scan. GLANDS: Parotid and submandibular glands unremarkable. Normal size thyroid gland, without nodule. LYMPH NODES: No significant cervical adenopathy. CERVICAL SPINE: Mild degenerative spondylosis C5-C6 level.. Nonspecific lucent changes are seen within the C4, C5 and probably the C2 vertebral body segments nonspecific. VASCULAR STRUCTURES: Unremarkable. OTHER FINDINGS: None. IMPRESSION: There are multiple tiny calcified tonsilliths seen throughout both palatine tonsils. No evidence of peritonsillar abscess formation.. Nonspecific small lucent changes seen within the C4, C5 and probably the C2 vertebral body segments of uncertain etiology. Clinical correlation to exclude an infiltrative marrow disease process is recommended.
[2018-10-17 15:31] VITALS: BP 118/75; PULSE 65; RESP 18; TEMP 98.2
== END 2018-10-17 15:32 | disposition home or self-care (01) ==
LOC: H.ER 10:01
DX: R13.10 Dysphagia, unspecified (principal); I10 Essential (primary) hypertension; B20 Human immunodeficiency virus [HIV] disease
CPT/HCPCS: 70491; 80053; 85025; 87070; 87430; 99284; Q9967

== ENCOUNTER 2018-12-04 10:28 | Emergency (ER) | payer SELFPAY ==
[2018-12-04 10:29] VITALS: BMI 25.8
[2018-12-04 10:33] VITALS: RESP 18; O2SAT 99
[2018-12-04 12:16] LABS: BASO % 0.5 % (0.0-2.0); EOS # 0.1 K/uL (0.0-0.7); EOS % 1.9 % (0.0-4.0); HEMOGLOBIN 14.6 g/dL (12.0-18.0); LYMPH # 1.4 K/uL (1.0-4.3); LYMPH % 26.3 % (20.0-40.0); MEAN CELL VOLUME 97.6 fl (80.0-94.0); MEAN CORPUSCULAR HGB CONC 34.8 g/dL (33.0-37.0); MEAN PLATELET VOLUME 7.1 fl (7.2-11.7); MONO # 0.7 K/uL (0.0-0.8); NEUT % 58.3 % (50.0-75.0); NRBC % 0.1 % (0.0-0.0); RBC 4.31 Mil/uL (4.40-5.90); RED CELL DISTRIBUTION WIDTH 12.9 % (11.5-14.5); WHITE BLOOD COUNT 5.1 K/uL (4.8-10.8)
[2018-12-04 12:34] LABS: ALB/GLOB RATIO 1.3 (1.0-2.1); ALBUMIN 4.6 g/dL (3.5-5.0); ALT/SGPT 33 U/L (21-72); AST/SGOT 35 U/L (17-59); BLOOD UREA NITROGEN 22 mg/dl (9-20); CALCIUM 9.7 mg/dL (8.4-10.2); GFR NON-AFRICAN AMERICAN 58
[2018-12-04 12:54] LABS: URINE BACTERIA FEW (<OCC); URINE BILIRUBIN NEGATIVE (NEGATIVE); URINE BLOOD NEGATIVE (NEGATIVE); URINE CLARITY CLEAR (Clear); URINE COLOR YELLOW (YELLOW); URINE GLUCOSE (UA) NEG (NEGATIVE); URINE LEUKOCYTE ESTERASE NEG Leu/uL (Negative); URINE PROTEIN NEGATIVE (NEGATIVE); URINE UROBILINOGEN 0.2-1.0 mg/dL (0.2-1.0)
[2018-12-04 12:55] LABS: SQUAMOUS EPITHIAL 1 /hpf (0-5)
[2018-12-04] MEDS ORDERED: BENZOCAINE SPR MM STA (13:35)
--- NOTE | 2018-12-04 14:10 | ED PDOC ---
HPI: CCC, URI, Sore Throat Time Seen by Provider: 12/04/18 10:45 Chief Complaint (Nursing): ENT Problem Chief Complaint (Provider): throat pain, lesion History Per: Patient, [employer] Technician History/Exam Limitations: no limitations Current Symptoms Are (Timing): Still Present Location Of Pain: Throat, Sinus/es, Headache Sick Contacts (Context): None Associated Symptoms: Fever (earlier week), Sore Throat, Cough. denies: Sputum, Neck Pain, Sinus Drainage, Myalgias, Nasal Congestion, Nausea, Vomiting Ear Symptoms: Bilateral: None Severity: Mild Additional Complaint(s): 53yo male c/o sore throat and headache with sinus pressure ongoing 2-3 days, denies SOB, productivity to cough, rash, neck pain, myalgias or fatigue. Past Medical History Reviewed: Historical Data, Nursing Documentation, Vital Signs Vital Signs: Last Vital Signs Temp 98.3 F 12/04/18 10:32 Pulse 71 12/04/18 10:32 Resp 18 12/04/18 10:32 BP 154/76 H 12/04/18 10:32 Pulse Ox 99 12/04/18 10:32 - Medical History PMH: HIV (compliant with meds), HTN, Pancreatitis Denies: Chronic Kidney Disease Other PMH: VL negative per patient - Surgical History Surgical History: Cholecystectomy - Family History Family History: States: Unknown Family Hx - Home Medications Home Medications: Ambulatory Orders Medication Instructions Recorded Enalapril Maleate [Vasotec] 10 mg PO DAILY #0 tab 04/07/16 Elviteg/Cob/Emtri/Tenof Alafen 1 tab PO DAILY 12/09/16 [Genvoya Tablet] Ibuprofen [Motrin] 600 mg PO Q6H PRN #20 tab 02/07/18 Oseltamivir Phosphate [Tamiflu] 75 mg PO BID #9 capsule 02/07/18 Dicyclomine [Dicyclomine HCl] 10 mg PO DAILY PRN 5 Days cap 05/16/18 Naproxen [Naprosyn] 500 mg PO BID PRN #10 tab 10/17/18 Ibuprofen [Motrin Tab] 600 mg PO Q6 PRN #15 tab 12/04/18 - Allergies Allergies/Adverse Reactions: Allergies Allergy/AdvReac Type Severity Reaction Status Date / Time No Known Allergies Allergy Verified 10/17/18 10:34 Review of Systems Constitutional: Positive for: Fever. Negative for: Chills, Weakness, Malaise, Weight loss Eyes: Negative for: Vision Change ENT: Positive for: Mouth Pain, Throat Pain. Negative for: Ear Pain, Ear Discharge, Nose Pain, Nose Discharge, Mouth Swelling, Throat Swelling Cardiovascular: Negative for: Chest Pain Respiratory: Positive for: Cough. Negative for: Shortness of Breath Gastrointestinal: Negative for: Nausea, Vomiting, Diarrhea Genitourinary Male: Negative for: Dysuria Skin: Negative for: Rash, Lesions, Jaundice Neurological: Positive for: Headache. Negative for: Weakness, Numbness, Seizures, Dizziness Psych: Negative for: Depression Physical Exam - Reviewed Nursing Documentation Reviewed: Yes Vital Signs Reviewed: Yes - Physical Exam Appears: Positive for: Well, Non-toxic, No Acute Distress Head Exam: Positive for: ATRAUMATIC, NORMAL INSPECTION, NORMOCEPHALIC Skin: Positive for: Normal Color, Warm, DRY Eye Exam: Positive for: EOMI, Normal appearance, PERRL ENT: Positive for: Normal ENT Inspection, Pharyngeal Erythema (1cm ulcer L soft pallate), Other (no thrush). Negative for: Sinus Pain/Drainage, Tonsillar Exudate, Tonsillar Swelling Neck: Positive for: Normal, Painless ROM Cardiovascular/Chest: Positive for: Regular Rate, Rhythm Respiratory: Positive for: CNT, Normal Breath Sounds Gastrointestinal/Abdominal: Positive for: Normal Exam, Soft. Negative for: Tenderness, Guarding Back: Positive for: Normal Inspection Extremity: Positive for: Normal ROM Neurologic/Psych: Positive for: Alert, Oriented. Negative for: Motor/Sensory Deficits - Laboratory Results Result Diagrams: 12/04/18 12:00 12/04/18 12:00 Lab Results: Total Bilirubin 0.4 mg/dl (0.2-1.3) 12/04/18 12:00 AST 35 U/L (17-59) 12/04/18 12:00 ALT 33 U/L (21-72) 12/04/18 12:00 Alkaline Phosphatase 75 U/L (38-126) 12/04/18 12:00 Total Protein 8.0 G/DL (6.3-8.2) 12/04/18 12:00 Albumin 4.6 g/dL (3.5-5.0) 12/04/18 12:00 Globulin 3.4 gm/dL (2.2-3.9) 12/04/18 12:00 Albumin/Globulin Ratio 1.3 (1.0-2.1) 12/04/18 12:00 Urine Color Yellow (YELLOW) 12/04/18 12:00 Urine Clarity Clear (Clear) 12/04/18 12:00 Urine pH 5.0 (5.0-8.0) 12/04/18 12:00 Ur Specific [place] 1.023 (1.003-1.030) 12/04/18 12:00 Urine Protein Negative mg/dL (NEGATIVE) 12/04/18 12:00 Urine Glucose (UA) Neg mg/dL (NEGATIVE) 12/04/18 12:00 Urine Ketones Negative mg/dL (NEGATIVE) 12/04/18 12:00 Urine Blood Negative (NEGATIVE) 12/04/18 12:00 Urine Nitrate Negative (NEGATIVE) 12/04/18 12:00 Urine Bilirubin Negative (NEGATIVE) 12/04/18 12:00 Urine Urobilinogen 0.2-1.0 mg/dL (0.2-1.0) 12/04/18 12:00 Ur Leukocyte Esterase Neg Simi/uL (Negative) 12/04/18 12:00 Urine RBC (Auto) 3 /hpf (0-3) 12/04/18 12:00 Urine Microscopic WBC 1 /hpf (0-5) 12/04/18 12:00 Ur Squamous Epith Cells 1 /hpf (0-5) 12/04/18 12:00 Urine Bacteria Few (<OCC) H 12/04/18 12:00 - ECG O2 Sat by Pulse Oximetry: 99 Medical Decision Making Medical Decision Making: labs unremarkable CXR unremarkable Admits to performing oral sex recently, will test pharynx for GC /chlamydia, discussed w lab proper probes, they recommended downtime slip and both probe (Aptiva and plain culture swab sent) [place] benzocaine spray applied w some relief, take up to 3x daily Has appt upcoming w Dr Andrade Afebrile in ED, no body aches, minimal cough, flu negative and ongoing 3+ days, tamiflu not indicated Disposition - Clinical Impression Clinical Impression: Dysphagia, HIV disease - Patient ED Disposition Is Patient to be Admitted: No Counseled Patient/Family Regarding: Studies Performed, Diagnosis, Need For Followup, Rx Given - Disposition Referrals: Wilbur Andrade MD [Family Provider] - Disposition: Routine/Home Disposition Time: 14:15 Condition: STABLE Additional Instructions: See Dr Villarreal this week for followup. You will be called for any positive results only Take motrin for headache, drink plenty of fluids, return to ER for any worse or new symptoms. Prescriptions: Ibuprofen [Motrin Tab] 600 mg PO Q6 PRN #15 tab PRN Reason: Pain, Moderate (4-7) Instructions: Dysphagia, Sexually-Transmitted Diseases (DC) Print Language: ICELANDIC
[2018-12-04 14:28] VITALS: BP 132/94; PULSE 65; TEMP 98.4
--- NOTE | 2018-12-05 09:02 | RAD ---
Date of service: 12/04/2018 HISTORY: HIV COMPARISON: No prior. TECHNIQUE: Chest PA and lateral FINDINGS: LUNGS: No active pulmonary disease. PLEURA: No significant pleural effusion identified. No pneumothorax apparent. CARDIOVASCULAR: No aortic atherosclerotic calcification present. Normal cardiac size. No pulmonary vascular congestion. OSSEOUS STRUCTURES: No significant abnormalities. VISUALIZED UPPER ABDOMEN: Normal. OTHER FINDINGS: None. IMPRESSION: No active disease.
== END 2018-12-04 14:35 | disposition home or self-care (01) ==
LOC: H.ER 10:28
DX: R13.10 Dysphagia, unspecified (principal); B20 Human immunodeficiency virus [HIV] disease; I10 Essential (primary) hypertension

== ENCOUNTER 2019-01-11 11:43 | Emergency (ER) | payer SELFPAY ==
[2019-01-11 12:04] VITALS: BMI 25.9
[2019-01-11 12:05] VITALS: RESP 18
[2019-01-11] MEDS ORDERED: Sodium Chloride 0.9% 1,000 ML IV STA (12:15)
[2019-01-11] MEDS ORDERED: Atropine-Diphenoxylate 0.025-2.5 mg Tab PO ONE (12:15)
--- NOTE | 2019-01-11 12:18 | ED PDOC ---
HPI:Nausea, Vomiting, Diarrhea Time Seen by Provider: 01/11/19 12:10 Chief Complaint (Nursing): GI Problem History Per: Patient Onset/Duration Of Symptoms: Days (1) Current Symptoms Are (Timing): Still Present Severity: Moderate Associated Symptoms: Chills, Diarrhea. denies: Fever, Nausea, Vomiting Additional Complaint(s): Multiple episodes of lose watery diarrhea since last night. Denies blood or vomiting. Had chills but no fever. Also c/o headache. Denies abdominal pain. Past Medical History Vital Signs: Last Vital Signs Temp 99.3 F 01/11/19 12:04 Pulse 94 H 01/11/19 12:04 Resp 18 01/11/19 12:04 BP 115/65 01/11/19 12:04 Pulse Ox 99 01/11/19 12:04 - Medical History PMH: HIV (compliant with meds), HTN, Pancreatitis Denies: Chronic Kidney Disease - Surgical History Surgical History: Cholecystectomy - Family History Family History: States: Unknown Family Hx - Home Medications Home Medications: Ambulatory Orders Medication Instructions Recorded Enalapril Maleate [Vasotec] 10 mg PO DAILY #0 tab 04/07/16 Elviteg/Cob/Emtri/Tenof Alafen 1 tab PO DAILY 12/09/16 [Genvoya Tablet] Ibuprofen [Motrin] 600 mg PO Q6H PRN #20 tab 02/07/18 Oseltamivir Phosphate [Tamiflu] 75 mg PO BID #9 capsule 02/07/18 Dicyclomine [Dicyclomine HCl] 10 mg PO DAILY PRN 5 Days cap 05/16/18 Naproxen [Naprosyn] 500 mg PO BID PRN #10 tab 10/17/18 Ibuprofen [Motrin Tab] 600 mg PO Q6 PRN #15 tab 12/04/18 - Allergies Allergies/Adverse Reactions: Allergies Allergy/AdvReac Type Severity Reaction Status Date / Time No Known Allergies Allergy Verified 10/17/18 10:34 Review of Systems ROS Statement: Except As Marked, All Systems Reviewed And Found Negative Constitutional: Positive for: Chills. Negative for: Fever Gastrointestinal: Positive for: Diarrhea. Negative for: Nausea, Vomiting, Abdominal Pain, Hematochezia Physical Exam - Reviewed Nursing Documentation Reviewed: Yes Vital Signs Reviewed: Yes - Physical Exam Appears: Positive for: Non-toxic, No Acute Distress Head Exam: Positive for: ATRAUMATIC, NORMAL INSPECTION, NORMOCEPHALIC Skin: Positive for: Normal Color, Warm, DRY Eye Exam: Positive for: EOMI, Normal appearance, PERRL ENT: Positive for: Other (Mucous membranes dry) Neck: Positive for: Normal, Painless ROM Cardiovascular/Chest: Positive for: Regular Rate, Rhythm Respiratory: Positive for: CNT, Normal Breath Sounds Gastrointestinal/Abdominal: Positive for: Normal Exam, Soft. Negative for: Tenderness Back: Positive for: Normal Inspection Extremity: Positive for: Normal ROM Neurological/Psych: Positive for: Awake, Alert, Normal Tone - Laboratory Results Result Diagrams: 01/11/19 12:23 01/11/19 12:23 - ECG O2 Sat by Pulse Oximetry: 99 Disposition - Clinical Impression Clinical Impression: Gastroenteritis - Patient ED Disposition Is Patient to be Admitted: Transfer of Care - Disposition Disposition Time: 16:00 Condition: FAIR Forms: ffk environment Connect (Indonesian) Patient Signed Over To: Sveta Brambila (Pending CT and reeval)
[2019-01-11] MEDS ORDERED: Atropine-Diphenoxylate 0.025-2.5 mg Tab ONE ×2 (12:27→12:29)
[2019-01-11 12:39] LABS: BASO % 0.2 % (0.0-2.0); EOS % 0.7 % (0.0-4.0); HEMOGLOBIN 14.7 g/dL (12.0-18.0); LYMPH # 0.6 K/uL (1.0-4.3); LYMPH % 8.5 % (20.0-40.0); MEAN CELL VOLUME 97.6 fl (80.0-94.0); MEAN CORPUSCULAR HEMOGLOBIN 33.3 pg (27.0-31.0); MEAN CORPUSCULAR HGB CONC 34.1 g/dL (33.0-37.0); MEAN PLATELET VOLUME 6.9 fl (7.2-11.7); MONO # 0.6 K/uL (0.0-0.8); MONO % 9.2 % (0.0-10.0); NEUT # 5.4 K/uL (1.8-7.0); NEUT % 81.4 % (50.0-75.0); PLATELET COUNT 252 K/uL (130-400); WHITE BLOOD COUNT 6.6 K/uL (4.8-10.8)
[2019-01-11 12:42] LABS: ALB/GLOB RATIO 1.3 (1.0-2.1); ALBUMIN 4.6 g/dL (3.5-5.0); CALCIUM 9.7 mg/dL (8.4-10.2)
[2019-01-11 14:01] LABS: BANDS 1 % (0-2); EOSINOPHIL 3 % (0-7); LYMPHOCYTE 7 % (20-50); MONOCYTE 13 % (0-10); NEUTROPHIL 76 % (42-75); PLATELET ESTIMATE NORMAL (NORMAL); TOTAL CELLS COUNTED 100
[2019-01-11] MEDS ORDERED: Iohexol 300 100 ML IJ ONE (15:39)
[2019-01-11] MEDS ORDERED: Sodium Chloride 0.9% 50 ML IV ONE (15:39)
--- NOTE | 2019-01-11 16:42 | CT ---
Date of service: 01/11/2019 PROCEDURE: CT Abdomen and Pelvis with contrast HISTORY: Unspecified abdominal pain. Fever, headache. COMPARISON: 06/02/2017. CT abdomen and pelvis. TECHNIQUE: Intravenous contrast dose: 95 cc Omnipaque 300. Radiation dose: Total exam DLP = 504.77 mGy-cm. This CT exam was performed using one or more of the following dose reduction techniques: Automated exposure control, adjustment of the mA and/or kV according to patient size, and/or use of iterative reconstruction technique. FINDINGS: LOWER THORAX: Unremarkable. LIVER: Unremarkable. No gross lesion or ductal dilatation. GALLBLADDER AND BILE DUCTS: Status post cholecystectomy. No abnormality is seen in the gallbladder fossa. Common bile duct measures 9 mm unchanged compared to prior studies. Findings are consistent with post cholecystectomy state. PANCREAS: Unremarkable. No gross lesion or ductal dilatation. SPLEEN: Unremarkable. ADRENALS: Unremarkable. No mass. KIDNEYS AND URETERS: Unremarkable. No hydronephrosis. No solid mass. VASCULATURE: Unremarkable. No aortic aneurysm. No atherosclerotic calcification or mural plaque present. BOWEL: Mild dilatation of small bowel without visible obstructing lesion or evidence of mechanical obstruction. Findings likely reflect ileus. It should be noted that similar degree of dilatation was noted on the prior study APPENDIX: A normal appendix is visualized in it's entirety. PERITONEUM: Unremarkable. No free fluid. No free air. LYMPH NODES: Unremarkable. No enlarged lymph nodes. BLADDER: Unremarkable. REPRODUCTIVE: Unremarkable. BONES: No acute fracture. OTHER FINDINGS: None. IMPRESSION: Persistent/recurrent dilatation of small bowel which is fluid filled likely ileus/enteritis. Otherwise, no acute or significant findings related to/ accounting for the clinical presentation. Additional benign and/or incidental findings described above. No significant interval change compared to the prior examination(s).
--- NOTE | 2019-01-11 18:03 | ED PDOC ---
- Laboratory Results Result Diagrams: 01/11/19 12:23 01/11/19 12:23 Lab Results: Total Bilirubin 0.5 mg/dl (0.2-1.3) 01/11/19 12:23 AST 43 U/L (17-59) 01/11/19 12:23 ALT 38 U/L (21-72) 01/11/19 12:23 Alkaline Phosphatase 78 U/L (38-126) 01/11/19 12:23 Total Protein 8.1 G/DL (6.3-8.2) 01/11/19 12:23 Albumin 4.6 g/dL (3.5-5.0) 01/11/19 12:23 Globulin 3.5 gm/dL (2.2-3.9) 01/11/19 12:23 Albumin/Globulin Ratio 1.3 (1.0-2.1) 01/11/19 12:23 - ECG O2 Sat by Pulse Oximetry: 99 Pulse Ox Interpretation: Normal Medical Decision Making Medical Decision Makin Patient signed out to me pending CT abdomen, reassessment. 1700 CT Abdomen/pelvis FINDINGS: LOWER THORAX: Unremarkable. LIVER: Unremarkable. No gross lesion or ductal dilatation. GALLBLADDER AND BILE DUCTS: Status post cholecystectomy. No abnormality is seen in the gallbladder fossa. Common bile duct measures 9 mm unchanged compared to prior studies. Findings are consistent with post cholecystectomy state. PANCREAS: Unremarkable. No gross lesion or ductal dilatation. SPLEEN: Unremarkable. ADRENALS: Unremarkable. No mass. KIDNEYS AND URETERS: Unremarkable. No hydronephrosis. No solid mass. VASCULATURE: Unremarkable. No aortic aneurysm. No atherosclerotic calcification or mural plaque present. BOWEL: Mild dilatation of small bowel without visible obstructing lesion or evidence of mechanical obstruction. Findings likely reflect ileus. It should be noted that similar degree of dilatation was noted on the prior study APPENDIX: A normal appendix is visualized in it's entirety. PERITONEUM: Unremarkable. No free fluid. No free air. LYMPH NODES: Unremarkable. No enlarged lymph nodes. BLADDER: Unremarkable. REPRODUCTIVE: Unremarkable. BONES: No acute fracture. OTHER FINDINGS: None. IMPRESSION: Persistent/recurrent dilatation of small bowel which is fluid filled likely ileus/enteritis. Otherwise, no acute or significant findings related to/ accounting for the clinical presentation. Additional benign and/or incidental findings described above. No significant interval change compared to the prior examination(s). pt aware of results tolerating po dc with family outpt follow up recommended Scribe Attestation: Documented by Cristela Anders, acting as a scribe for Sveta Brambila MD Provider Scribe Attestation: All medical record entries made by the Scribe were at my direction and personally dictated by me. I have reviewed the chart and agree that the record a ccurately reflects my personal performance of the history, physical exam, medical decision making, and the department course for this patient. I have also personally directed, reviewed, and agree with the discharge instructions and disposition. Disposition Counseled Patient/Family Regarding: Studies Performed, Diagnosis, Need For Followup - Clinical Impression Clinical Impression: Enteritis - POA Present On Arrival: None - Disposition Disposition: Routine/Home Disposition Time: 17:35 Condition: IMPROVED Additional Instructions: follow up with your primary doctor in 1-2 days for reevaluation stay hydrated return to the ED With any worsening or concerning symptoms Instructions: Diarrhea in Adolescents and Adults Forms: [email or web address] ([place])
[2019-01-11 18:31] VITALS: BP 113/66; PULSE 95; TEMP 99
[2019-01-12 20:59] VITALS: O2SAT 99
== END 2019-01-11 18:35 | disposition home or self-care (01) ==
LOC: H.ER 11:43
DX: K52.9 Noninfective gastroenteritis and colitis, unspecified (principal); I10 Essential (primary) hypertension
CPT/HCPCS: 74177; 80053; 85025; 96374; 99285; J2270; J7030; Q9967